=== PATIENT | female | born 1980 | race Caucasian/White ===

== ENCOUNTER → 2016-12-02 | Outpatient (CLI) | payer OTHER | LOC: FIMAGING 11:20 | PROVIDERS: ATTEND Obstetrics & Gynecology Maternal & Fetal Medicine | DX: Z34.81 Encounter for supervision of other normal pregnancy, first trimester (principal); Z3A.01 Less than 8 weeks gestation of pregnancy; Z87.59 Personal history of other complications of pregnancy, childbirth and the puerperium ==

== ENCOUNTER → 2017-01-06 | Outpatient (CLI) | payer OTHER | LOC: FIMAGING 09:24 | PROVIDERS: ATTEND Obstetrics & Gynecology | DX: Z34.91 Encounter for supervision of normal pregnancy, unspecified, first trimester (principal); Z3A.11 11 weeks gestation of pregnancy; Z87.51 Personal history of pre-term labor; Z98.891 History of uterine scar from previous surgery ==

== ENCOUNTER → 2017-02-03 | Outpatient (CLI) | payer OTHER | LOC: FIMAGING 08:45 | PROVIDERS: ATTEND Obstetrics & Gynecology | DX: O09.292 Supervision of pregnancy with other poor reproductive or obstetric history, second trimester (principal); O44.02 Complete placenta previa NOS or without hemorrhage, second trimester; Z3A.15 15 weeks gestation of pregnancy ==

== ENCOUNTER → 2017-02-17 | Outpatient (CLI) | payer OTHER | LOC: FIMAGING 08:27 | PROVIDERS: ATTEND Obstetrics & Gynecology | DX: O44.02 Complete placenta previa NOS or without hemorrhage, second trimester (principal); Z3A.17 17 weeks gestation of pregnancy ==

== ENCOUNTER → 2017-02-27 | Outpatient (CLI) | payer OTHER | LOC: FIMAGING 08:14 | PROVIDERS: ATTEND Obstetrics & Gynecology | DX: O09.292 Supervision of pregnancy with other poor reproductive or obstetric history, second trimester (principal); Z3A.19 19 weeks gestation of pregnancy ==

== ENCOUNTER → 2017-03-11 | Outpatient (CLI) | payer OTHER | LOC: FIMAGING 08:47 | PROVIDERS: ATTEND Obstetrics & Gynecology | DX: O09.292 Supervision of pregnancy with other poor reproductive or obstetric history, second trimester (principal); O44.42 Low lying placenta NOS or without hemorrhage, second trimester; O34.219 Maternal care for unspecified type scar from previous cesarean delivery; Z87.59 Personal history of other complications of pregnancy, childbirth and the puerperium; Z3A.21 21 weeks gestation of pregnancy ==

== ENCOUNTER → 2017-03-24 | Outpatient (CLI) | payer OTHER | LOC: FIMAGING 13:41 | PROVIDERS: ATTEND Obstetrics & Gynecology | DX: O09.292 Supervision of pregnancy with other poor reproductive or obstetric history, second trimester (principal); O44.02 Complete placenta previa NOS or without hemorrhage, second trimester; Z3A.22 22 weeks gestation of pregnancy ==

== ENCOUNTER → 2017-04-22 | Outpatient (CLI) | payer OTHER | LOC: FIMAGING 14:25 | PROVIDERS: ATTEND Obstetrics & Gynecology | DX: O34.219 Maternal care for unspecified type scar from previous cesarean delivery (principal); Z3A.28 28 weeks gestation of pregnancy; Z87.59 Personal history of other complications of pregnancy, childbirth and the puerperium ==

== ENCOUNTER → 2017-05-20 | Outpatient (CLI) | payer OTHER | LOC: FIMAGING 14:01 | PROVIDERS: ATTEND Obstetrics & Gynecology | DX: O09.293 Supervision of pregnancy with other poor reproductive or obstetric history, third trimester (principal); O34.212 Maternal care for vertical scar from previous cesarean delivery; Z3A.31 31 weeks gestation of pregnancy ==

== ENCOUNTER → 2017-06-16 | Outpatient (CLI) | payer OTHER | LOC: FIMAGING 13:29 | PROVIDERS: ATTEND Obstetrics & Gynecology | DX: O09.293 Supervision of pregnancy with other poor reproductive or obstetric history, third trimester (principal); R09.81 Nasal congestion; Z3A.34 34 weeks gestation of pregnancy ==

== ENCOUNTER 2017-07-07 05:30 | Inpatient (IN) | payer OTHER ==
--- NOTE | 2017-07-01 18:41 | GHP ---
[f rep st] PREOP HISTORY AND PHYSICAL DATE OF ADMISSION: 07/07/2017 DATE OF PLANNED PROCEDURE: 07/07/2017. PLANNED PROCEDURE: Repeat low-transverse section. INDICATIONS: The patient is a 36-year-old, 2, para 0-1-0-0, who will be 38+ weeks gestation. The patient's estimated due date is 07/22/2017 based on a last menstrual period of 10/15/2016, cons istent with a first trimester ultrasound at 9 weeks 2 days. The patient initially initiated care in the first trimester at [facility]. The patient has a history of a previous classi avn section at 25 weeks gestation that was complicated by a chronic abruption. Sh e had a classical section and baby, unfortunately, 1 day . The patient has b een treated with Anastasiia 17OHP injections throughout the because of her history of d elivery. She has had a close surveillance with this , which has overall been unremarkable w ith the exception of understandable anxiety due to her previous poor obstetric outcome. MEDICAL HISTORY: Significant for cervical dysplasia. MEDICATIONS: vitamins, folic acid, DHEA, iron. SURGICAL HISTORY: Classical section, hysteroscopy with morcellation of polyp. ALLERGIES: No known drug allergies. SOCIAL HISTORY: The patient is . 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 She lives with her . She d enies tobacco, alcohol, or drug use. FAMILY MEDICAL HISTORY: Noncontributory. HIP HOP ARTIST HISTORY: Menarche age 15. Periods were 24-28 days, lasting 4-5 days. She is a 2, pa ra 0-1-0-0. In 06/2015, she had a classical section of a 25-week gestation female for chron ic abruption and labor, but the baby at 1-day-old. Current , she has been on 1 7OHP injections for history of delivery, and has had close surveillance and growth ultrasound s. Baby has been growing well. This baby is a boy. The patient does have a history of cervical dys plasia, for which she had a LEEP in 2004. Repeat Paps have been negative. 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 She denies any history of any other sexually transmitted diseases. REVIEW OF SYSTEMS: A 10-point review of systems is negative. She has got positive movement. No loss of fluid. No vaginal bleeding. She denies any headache, changes in vision, nausea, vomiting , fevers, or chills. PHYSICAL EXAMINATION: VITAL SIGNS: Stable. GENERAL APPEARANCE: Alert and oriented x3. PSYCH: Ap propriate affect. MUSCULOSKELETAL: Grossly intact. NEURO: Grossly intact. NECK: Mobile and supp le. HEART: Regularly regular. LUNGS: Clear to auscultation bilaterally. ABDOMEN: Gravid, nondis tended, nontender. EXTREMITIES: No calf tenderness or edema. PELVIC: Deferred. LABORATORY DATA: LABS: Blood type A positive. Antibody screen negative. Rubella immune. GBS negative. HBsAg negative. HIV negative. Her 50 g glucose is 78. Her Verifi screen was negati ve. Her alpha fetoprotein screen is negative. ASSESSMENT AND PLAN: A 36-year-old, 2, para 0-1-0-0, who will be 38+ weeks gestation, who pl ans to have a repeat low transverse section. She is not a candidate for a vaginal aft er section. The patient has been properly consented. /[id number]/MODL
--- NOTE | 2017-07-01 18:41 | GHP ---
[f rep st] PREOP HISTORY AND PHYSICAL DATE OF ADMISSION: 07/07/2017 DATE OF PLANNED PROCEDURE: 07/07/2017. PLANNED PROCEDURE: Repeat low-transverse section. INDICATIONS: The patient is a 36-year-old, 2, para 0-1-0-0, who will be 38+ weeks gestation. The patient's estimated due date is 07/22/2017 based on a last menstrual period of 10/15/2016, cons istent with a first trimester ultrasound at 9 weeks 2 days. The patient initially initiated care in the first trimester at [facility]. The patient has a history of a previous classi van section at 25 weeks gestation that was complicated by a chronic abruption. Sh e had a classical section and baby, unfortunately, 1 day . The patient has b een treated with Anastasiia 17OHP injections throughout the because of her history of d elivery. She has had a close surveillance with this , which has overall been unremarkable w ith the exception of understandable anxiety due to her previous poor obstetric outcome. MEDICAL HISTORY: Significant for cervical dysplasia. MEDICATIONS: vitamins, folic acid, DHEA, iron. SURGICAL HISTORY: Classical section, hysteroscopy with morcellation of polyp. ALLERGIES: No known drug allergies. SOCIAL HISTORY: The patient is . 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 She lives with her . She d enies tobacco, alcohol, or drug use. FAMILY MEDICAL HISTORY: Noncontributory. AMMUNITION SPECIALIST HISTORY: Menarche age 15. Periods were 24-28 days, lasting 4-5 days. She is a 2, pa ra 0-1-0-0. In 06/2015, she had a classical section of a 25-week gestation female for chron ic abruption and labor, but the baby at 1-day-old. Current , she has been on 1 7OHP injections for history of delivery, and has had close surveillance and growth ultrasound s. Baby has been growing well. This baby is a boy. The patient does have a history of cervical dys plasia, for which she had a LEEP in 2004. Repeat Paps have been negative. 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 She denies any history of any other sexually transmitted diseases. REVIEW OF SYSTEMS: A 10-point review of systems is negative. She has got positive movement. No loss of fluid. No vaginal bleeding. She denies any headache, changes in vision, nausea, vomiting , fevers, or chills. PHYSICAL EXAMINATION: VITAL SIGNS: Stable. GENERAL APPEARANCE: Alert and oriented x3. PSYCH: Ap propriate affect. MUSCULOSKELETAL: Grossly intact. NEURO: Grossly intact. NECK: Mobile and supp le. HEART: Regularly regular. LUNGS: Clear to auscultation bilaterally. ABDOMEN: Gravid, nondis tended, nontender. EXTREMITIES: No calf tenderness or edema. PELVIC: Deferred. LABORATORY DATA: LABS: Blood type A positive. Antibody screen negative. Rubella immune. GBS negative. HBsAg negative. HIV negative. Her 50 g glucose is 78. Her Verifi screen was negati ve. Her alpha fetoprotein screen is negative. ASSESSMENT AND PLAN: A 36-year-old, 2, para 0-1-0-0, who will be 38+ weeks gestation, who pl ans to have a repeat low transverse section. She is not a candidate for a vaginal aft er section. The patient has been properly consented. /[id number]/MODL
[2017-07-07] MEDS ORDERED: LR 500 ML IV ONE (06:23)
[2017-07-07] MEDS ORDERED: CITRIC ACID/SODIUM CITRATE 30 ML UDCUP PO ONE (06:23)
[2017-07-07] MEDS ORDERED: ceFAZolin 2 GM/DEXTROSE 100 ML IV ONE (06:24)
[2017-07-07] MEDS ORDERED: LR 1,000 ML IV SCH (06:30)
[2017-07-07 07:45] LABS: PLATELET COUNT 208 10^3/uL (150-400)
--- NOTE | 2017-07-07 07:52 | PREANESOB ---
Obstetric Pre-Anesthesia Info - General Info Proposed Procedure: Repeat C Section.. : 2 Para: 1 PAUL: 07/22/17 Gestational Age: 37 week(s) and 6 day(s) - Info Status: Full Term Monitors: External FHR Baseline (bpm): 140 FHR Pattern: Reassuring - Labor Status Section History: Repeat Labor Epidural: No Anesthesia ROS: Prior C Section with regional anesthesia. Prior LEEP and polypectomy. Allergies/Adverse Reactions: Allergy/AdvReac Type Severity Reaction Status Date / Time No Known Allergies Allergy Verified 02/02/14 08:04 Home Medications: Medication Instructions Recorded NK [No Known Home Meds] 02/02/14 Visit Medications: Generic Name Dose Route Start Last Admin Trade Name Freq PRN Reason Stop Dose Admin Lactated Ringer's 1,000 mls @ 125 mls/hr 07/07/17 06:30 Lr IV 01/03/18 06:29 CONT LENI Discontinued Medications Generic Name Dose Route Start Last Admin Trade Name Freq PRN Reason Stop Dose Admin Citric Acid/Sodium Citrate 30 ml 07/07/17 06:23 Bicitra PO 07/07/17 06:24 ONCALL ONE Lactated Ringer's 500 mls @ 0 mls/hr 07/07/17 06:23 Lr IV 07/07/17 06:24 ONCE ONE As Directed Cefazolin Sodium/Dextrose 100 mls @ 200 mls/hr 07/07/17 06:24 Ancef 2 Gm (Premix) IV 07/07/17 06:53 ONCALL ONE Protocol - Anesthesia History Response to Local Anesthetics: Normal Anesthesia & Operative History: No Prior Problems Family Anesthesia History: Negative - Social History Substance Use/Abuse: Denies - Vital Signs Blood Pressure: 119/66 Heart Rate: 76 Height/Weight (Nursing): Height 162.56 cm Weight 79.832 kg - Focused Exam Neck exam: FROM Mallampati Score: Class 1 Mouth exam: normal dental/mouth exam Pulmonary: no respiratory distress Cardiovascular: regular rate and rhythym - Plan Anesthetic Plan: SAB Consent Signed and on Chart: Yes Patient/Guardian Understands and Agrees to Plan: Yes
[2017-07-07] MEDS ORDERED: OXYTOCIN 10 UNIT/ML VIAL ONE (08:28)
[2017-07-07] MEDS ORDERED: LIDOCAINE 1% 300 MG/30 ML SDV ONE (08:28)
[2017-07-07] MEDS ORDERED: AMMONIA AROMATIC 1 EACH AMP IH ONE (08:28)
[2017-07-07] MEDS ORDERED: MISOPROSTOL 200 MCG TAB ONE (08:28)
[2017-07-07] MEDS ORDERED: morphINE PF 5 MG/10 ML INJ ONE (10:11)
[2017-07-07] MEDS ORDERED: fentaNYL 100 MCG/2 ML INJ ONE (10:11)
[2017-07-07] MEDS ORDERED: PROPOFOL 200 MG/20 ML VIAL ONE (10:36)
[2017-07-07] MEDS ORDERED: OXYTOCIN 100 UNITS/10 ML VIAL ONE (10:36)
[2017-07-07] MEDS ORDERED: ONDANSETRON 4 MG/2 ML VIAL ONE ×2 (10:37→11:16)
[2017-07-07] MEDS ORDERED: LIDOCAINE 2% 5 ML SDV ONE ×2 (10:38→11:16)
[2017-07-07] MEDS ORDERED: DEXAMETHASONE 4 MG/ML VIAL ONE ×2 (11:16)
[2017-07-07] MEDS ORDERED: LACTULOSE 20 GM/30 ML UDCUP PO PRN (11:55)
[2017-07-07] MEDS ORDERED: DOCUSATE SODIUM 100 MG CAP PO PRN (11:55)
[2017-07-07] MEDS ORDERED: POLYETHYLENE GLYCOL 3350 17 GM PKT PO PRN (11:55)
[2017-07-07] MEDS ORDERED: PROMETHAZINE HCL 25 MG/ML INJ IVP PRN (11:55)
[2017-07-07] MEDS ORDERED: SIMETHICONE 80 MG TAB CHEW PO PRN (11:55)
[2017-07-07] MEDS ORDERED: MAGNESIUM HYDROXIDE 30 ML UDCUP PO PRN (11:55)
[2017-07-07] MEDS ORDERED: BISACODYL 10 MG SUPP PR PRN (11:55)
[2017-07-07] MEDS ORDERED: ACETAMINOPHEN 325 MG TAB PO PRN (11:55)
--- NOTE | 2017-07-07 12:04 | OBDEL ---
Info Type: Repeat Presentation at Delivery: Vertex L&D Analgesia/Anesthesia Type: Spinal GBS+: No Intrapartum Medications: Discontinued Medications Generic Name Dose Route Start Last Admin Trade Name Frank PRN Reason Stop Dose Admin Citric Acid/Sodium Citrate 30 ml 07/07/17 06:23 07/07/17 07:24 Bicitra PO 07/07/17 06:24 30 ml ONCALL ONE Administration Cefazolin Sodium/Dextrose 100 mls @ 200 mls/hr 07/07/17 06:24 07/07/17 07:50 Ancef 2 Gm (Premix) IV 07/07/17 06:53 100 mls ONCALL ONE Administration Protocol - Care Provider Cloth Printing Inspector/RETAIL PRESENTATION SPECIALIST: Randa Collins Indications for Delivery: Prior Classical Incision Operative Report - Delivery Pre-op Diagnoses: IUP @ 37 6/7 weeks, hx classical c section, hx demise on day of life 1 Post-op Diagnoses: same as pre op History of Prior Section: Yes Number of Prior Sections: 1 Indications for Prior Section: Placental Abruption Indications for Current Section: Elective/Repeat Surgeon: Tana Gonzales Fnp: Sarah Donato Anesthesiologist: James Fairchild Complications: None Findings: omentum adherent to uterus and anterior abdominal wall EBL: [address] [place] Data Strong Delivery Date: 07/07/17 Delivery Time: 10:53 PAUL: 07/22/17 Gestational Age: 37 week(s) and 6 day(s) Sex of : Male Score (1 Min): 8 Score (5 Min): 9 ICD10 Worksheet Patient Problems: Problems Problem Status Onset delivery delivered Acute
--- NOTE | 2017-07-07 12:04 | OBDEL ---
Info Type: Repeat Presentation at Delivery: Vertex L&D Analgesia/Anesthesia Type: Spinal GBS+: No Intrapartum Medications: Discontinued Medications Generic Name Dose Route Start Last Admin Trade Name Frank PRN Reason Stop Dose Admin Citric Acid/Sodium Citrate 30 ml 07/07/17 06:23 07/07/17 07:24 Bicitra PO 07/07/17 06:24 30 ml ONCALL ONE Administration Cefazolin Sodium/Dextrose 100 mls @ 200 mls/hr 07/07/17 06:24 07/07/17 07:50 Ancef 2 Gm (Premix) IV 07/07/17 06:53 100 mls ONCALL ONE Administration Protocol - Care Provider Event Staff/GROUP HOME SUPERVISOR: Randa Collins Indications for Delivery: Prior Classical Incision Operative Report - Delivery Pre-op Diagnoses: IUP @ 37 6/7 weeks, hx classical c section, hx demise on day of life 1 Post-op Diagnoses: same as pre op History of Prior Section: Yes Number of Prior Sections: 1 Indications for Prior Section: Placental Abruption Indications for Current Section: Elective/Repeat Surgeon: Tana Gonzales Diabetes Specialist: Sarah Donato Anesthesiologist: James Fairchild Complications: None Findings: omentum adherent to uterus and anterior abdominal wall EBL: [address] [place] Data Strong Delivery Date: 07/07/17 Delivery Time: 10:53 PAUL: 07/22/17 Gestational Age: 37 week(s) and 6 day(s) Sex of : Male Score (1 Min): 8 Score (5 Min): 9 ICD10 Worksheet Patient Problems: Problems Problem Status Onset delivery delivered Acute
[2017-07-07] MEDS ORDERED: KETOROLAC 30 MG/1 ML SDV ONE (12:29)
[2017-07-07] MEDS: KETOROLAC 30 MG/1 ML SDV IVP SCH ×2 (12:31→18:03)
--- NOTE | 2017-07-07 13:09 | GOP ---
[f rep st] OPERATIVE REPORT DATE OF OPERATION: 07/07/2017 SURGEON: Tana Gonzales DO SUPERINTENDENT DISTRIBUTION: NERY Del Real ANESTHESIOLOGIST: James Fairchild MD PREOPERATIVE DIAGNOSIS: 1. Intrauterine at 37 and 6/7 weeks' gestation. 2. History of classical section. 3. History of demise at 1 day of life with G1, secondary to chronic abruption and prematuri ty. POSTOPERATIVE DIAGNOSIS: 1. Intrauterine at 37 and 6/7 weeks' gestation. 2. History of classical section. 3. History of demise at 1 day of life with G1, secondary to chronic abruption and prematuri ty. PROCEDURE PERFORMED: Repeat low transverse section. FINDINGS: 1. Viable 7 pound, 4 ounce male in the cephalic presentation, delivered at 10:53 a.m. Apgars were 8 and 9. 2. Intact placenta with 3-vessel cord. 3. Normal ovaries uterus and tubes. 4. Omentum adhered to anterior wall of the uterus and the peritoneum. SPECIMENS: Cord blood. INDICATIONS: Patient is a 36-year-old, 2, para 0, 1-0-0, who is 37 and 6/7 weeks' gestation. She has a history of a previous classical section for chronic abruption at 26 weeks' gesta tion. The baby only lived 1 day. She is not a candidate for vaginal after section. Patient has been closely monitored during this and received progesterone injections due to her history of delivery. The patient was consented for a repeat low transverse sect ion. Risks and benefits have been reviewed with the patient and the patient has been properly consen karen. DESCRIPTION OF PROCEDURE: Patient was taken to the operating room with intravenous fluids in place. She was then seated on the operating room table, where spinal anesthesia was obtained. She was then repositioned into the dorsal supine position with a leftward tilt. Venodynes were placed on her low er extremities. A Espitia catheter was placed. She was then prepped and draped in the normal sterile fashion. Anesthesia was assessed and found to be adequate. A Pfannenstiel skin incision was then ma de 2 fingerbreadths above the pubic symphysis. The incision was then carried through to the underlyi ng layer of fascia with the Bovie. The fascia was then nicked in the midline, and the fascial incisi on was extended laterally. The superior aspect of the fascial incision was then grasped with a Koche r, tented up, and the underlying rectus muscle dissected off bluntly with the Bovie. Attention was t hen turned to the inferior aspect of the fascial incision, which in a similar fashion was grasped wit h adán Eng, tented up, and the underlying rectus muscle dissected off bluntly with the Bovie. The re ctus muscle was then in the midline. The peritoneum was identified, tented up, and entered sharply with the Metzenbaum scissors. The incision was extended superiorly and inferiorly with exce llent visualization of the bladder. The omentum was noted to be adherent to the anterior abdominal w all and the peritoneum, it was carefully dissected off and was found to be hemostatic. The bladder b lade was then inserted. Vesicouterine peritoneum was identified, tented up, and entered sharply with the Metzenbaum scissors. The incision was extended laterally and the bladder flap was created digit ally. The bladder blade was then reinserted. The uterus was then incised in low transverse fashion with the scalpel. The uterine incision was extended laterally. The infant's head was then delivered through the incision. The remainder of the viable 8-[id number]-5-ounce was delivered without diff iculty. Delayed cord clamping x1 was done. The cord was clamped x2 and cut, and the then avalos ded off to awaiting nurse practitioner. Intact placenta with 3-vessel cord delivered without difficulty. The uterus was then exteriorized an d cleared of all clots and debris, and wrapped in a moist laparotomy sponge. The bladder blade was t hen reinserted. The hysterotomy was closed with 0 Vicryl in a running locked fashion. A 2nd 0 Vicry l stitch was used to imbricate the uterine incision, and 1 additional 0 Vicryl stitch was used to ach ieve hemostasis on the left lower portion of the incision. Ovaries, uterus, and tubes were unremarka ble. The uterus was then returned to the patient's abdomen. The gutters were cleared of all clots a nd debris. The hysterotomy remained hemostatic. Peritoneum was reapproximated with 3-0 Vicryl in a running fashion, rectus muscle was reapproximated with 2-0 Vicryl. The fascia was closed with 0 Vicr yl in a running fashion. The subcutaneous tissue was found to be hemostatic. Toñito's tissue was re approximated with 3-0 Vicryl in a running fashion. Subcuticular tissue was closed with 3-0 Vicryl in a running subcuticular fashion. Sponge, lap, and needle count correct x2. Patient was transferred to recovery room in stable condition. /[id number]/MODL
[2017-07-07] MEDS ORDERED: NALOXONE HCL 0.4 MG/ML INJ IVP PRN (13:20)
[2017-07-07] MEDS ORDERED: ONDANSETRON 4 MG/2 ML VIAL IVP PRN (13:20)
[2017-07-07] MEDS ORDERED: PHENYLEPHRINE HCL 100 MCG/ML SYR IVP PRN (13:20)
--- NOTE | 2017-07-07 13:20 | POSTANESTH ---
Post Anesthetic Evaluation Cardiovascular Status: Normal, Stable, Similar to Pre-Op Cond Respiratory Status: Normal, Stable, Similar to Pre-op Cond. Level of Consciousness/Mental Status: Can Participate in Eval, Alert and Oriented Pain Control: Adequate, Prn Tx Ordered Nausea/Vomiting Control: Adequate, Prn Tx Ordered Complications Possibly Related to Anesthesia: None Noted
[2017-07-07] MEDS: SENNOSIDES/DOCUSATE SODIUM TAB PO SCH (22:17)
[2017-07-08] MEDS: KETOROLAC 30 MG/1 ML SDV IVP SCH ×2 (00:44→05:51)
[2017-07-08] MEDS: SENNOSIDES/DOCUSATE SODIUM TAB PO SCH ×2 (08:54→20:55)
[2017-07-08] MEDS: HYDROCODONE/APAP 5/325 TAB PO PRN ×4 (08:54→20:54)
--- NOTE | 2017-07-08 10:37 | OBPP ---
Progress Note Assessment/Plan: Assessment: 36 yo pod# 1 s/p PLTCS hx classical c section anemia breast feeding Plan: iron routine post and post operative care 07/08/17 10:33 Subjective/ Course: 07/08/17 10:37 patient is doing well. pain is well controlled. coates catheter is out . able to walk in the room. not passing gas yet. denies headache and changes in vision. working on breast feeding. anxious about baby but doing well. normal lochia. Objective: 07/08/17 06:10 Patient ABO/Rh A POSITIVE 07/07/17 06:15 Temp Pulse Resp BP Pulse Ox 36.6 C 74 18 112/65 94 07/08/17 08:00 07/08/17 08:00 07/08/17 08:00 07/08/17 08:00 07/08/17 08:00 Uterine Position/Fundal Height: Umbilicus -2 Uterine Tone: Firm Physical Exam - Physical Exam Neck: non-tender, full range of motion Respiratory: chest non-tender, lungs clear, normal breath sounds Cardiac/Chest: normal peripheral pulses, regular rate, rhythm Abdomen: normal bowel sounds, non-tender Extremities: normal range of motion, non-tender, normal inspection, normal capillary refill Skin: normal color, warm/dry, other (incision clean dry and intact) Neuro/Psych: no motor/sensory deficits, alert, normal mood/affect, oriented x 3
[2017-07-08] MEDS ORDERED: IRON POLYSAC/IRON HEME 28 MG TAB PO SCH (10:45)
[2017-07-08] MEDS: IBUPROFEN 600 MG TAB PO PRN ×2 (12:15→18:08)
[2017-07-08] MEDS: IRON POLYSAC/IRON HEME 28 MG TAB PO SCH (21:20)
[2017-07-09] MEDS: IBUPROFEN 600 MG TAB PO PRN ×4 (00:08→20:28)
[2017-07-09] MEDS: HYDROCODONE/APAP 5/325 TAB PO PRN ×5 (00:08→20:29)
[2017-07-09] MEDS: IRON POLYSAC/IRON HEME 28 MG TAB PO SCH ×3 (09:48→20:30)
[2017-07-09] MEDS: SENNOSIDES/DOCUSATE SODIUM TAB PO SCH ×2 (09:48→20:50)
--- NOTE | 2017-07-09 10:25 | OBPP ---
Progress Note Assessment/Plan: Assessment: 36 yo pod# 2 s/p PLTCS hx classical c section anemia breast feeding Plan: iron routine post and post operative care 07/09/17 10:23 Subjective/ Course: 07/08/17 10:37 patient is doing well. pain is well controlled. coates catheter is out . able to walk in the room. not passing gas yet. denies headache and changes in vision. working on breast feeding. anxious about baby but doing well. normal lochia. 07/09/17 10:23 patient is doing well. pain is well controlled. passing gas. had a small bowel movement. breast feeding is going well. but has a small blister on one of her nipples. working with lacation. mood good. voiding without difficulty. denies headache and changes in vision. ambulating. Objective: 07/08/17 06:10 Patient ABO/Rh A POSITIVE 07/07/17 06:15 Temp Pulse Resp BP Pulse Ox 37.1 C 94 18 120/68 94 07/09/17 01:25 07/09/17 01:25 07/09/17 01:25 07/09/17 01:25 07/09/17 01:25 Uterine Position/Fundal Height: Umbilicus -2 Uterine Tone: Firm Physical Exam - Physical Exam Neck: non-tender, full range of motion, supple Respiratory: chest non-tender, lungs clear, normal breath sounds Cardiac/Chest: normal peripheral pulses, regular rate, rhythm Abdomen: normal bowel sounds, non-tender Extremities: normal range of motion, non-tender, normal inspection, normal capillary refill Skin: normal color, warm/dry Neuro/Psych: no motor/sensory deficits, alert, normal mood/affect, oriented x 3
[2017-07-10] MEDS: HYDROCODONE/APAP 5/325 TAB PO PRN ×2 (00:53→05:13)
[2017-07-10] MEDS: IBUPROFEN 600 MG TAB PO PRN ×2 (02:31→09:25)
[2017-07-10 05:11] VITALS: RESP 16
[2017-07-10 08:49] VITALS: BP 101/61; PULSE 65; TEMP 99.1; O2SAT 95
[2017-07-10] MEDS: SENNOSIDES/DOCUSATE SODIUM TAB PO SCH (09:24)
[2017-07-10] MEDS: IRON POLYSAC/IRON HEME 28 MG TAB PO SCH (10:44)
--- NOTE | 2017-07-10 11:13 | OBGCSDC ---
General Delivery Information - General Info : 2 Para: 2 Abortions: 0 Type: Repeat L&D Analgesia/Anesthesia Type: Spinal Admission Date: 07/07/17 Labs: Patient ABO/Rh A POSITIVE 07/07/17 06:15 Hct 30.6 % (38.0-47.0) L 07/08/17 06:10 - Hospital Course : 07/08/17 10:37 patient is doing well. pain is well controlled. coates catheter is out . able to walk in the room. not passing gas yet. denies headache and changes in vision. working on breast feeding. anxious about baby but doing well. normal lochia. 07/09/17 10:23 patient is doing well. pain is well controlled. passing gas. had a small bowel movement. breast feeding is going well. but has a small blister on one of her nipples. working with lacation. mood good. voiding without difficulty. denies headache and changes in vision. ambulating. 07/10/17 11:10 Discharge Summary S) pt doing well, she reports min pain- relieved with ibuprofen and norco. She is voiding without difficulty and has had BM. She is . Denies any depression. She denies any CP/SOB/headaches. She is ambulating without difficulty. O) Exam: VSS constitutional: WN,WF, A&Ox3 HEENT: atraumatic, normocephalic, supple neck Heart: RRR, no murmur Chest: CTA-B Abdomen: Soft, nontender Incision: C/D/I, no erythema Uterus: firm @U-1 lochia: min rubra, no clots Extremities: trace edema, negative van's sign neuro: grossly normal A) [id number] s/p repeat c/s POD#3 anemia P) d/c home today routine post op care cont /use of APNO danger S&S discussed RTO in 1-2 weeks for post op visit - Delivery Providers Surgeon: Tana Gonzales Social Research Assistant: Sarah Dontao Anesthesiologist: James Fairchild - Delivery Number of Prior Sections: 1 Indications for Current Section: Elective/Repeat Intra-op Complications: None EBL: 700 Data Strong Delivery Date: 07/07/17 Delivery Time: 10:53 PAUL: 07/22/17 Gestational Age: 38 week(s) and 2 day(s) Sex of : Male Weight (gm): 3284 g Score (1 Min): 8 Score (5 Min): 9 Discharge Information - Discharge Information Condition: Good Instruction/Follow Up: Two Weeks, Four Weeks, Six Weeks
== END 2017-07-10 18:30 | disposition home or self-care (01) | DRG 766 ==
LOC: FLD 05:30 → FOB 14:05
PROVIDERS: ADMIT Obstetrics & Gynecology Gynecology; ATTEND Obstetrics & Gynecology
PROC: 10D00Z1 Extraction of Products of Conception, Low, Open Approach (ICD-10-PCS; principal; 2017-07-07)
DX: O34.211 Maternal care for low transverse scar from previous cesarean delivery (principal); O90.81 Anemia of the puerperium; Z3A.38 38 weeks gestation of pregnancy; Z37.0 Single live birth
CPT/HCPCS: J0690; J1100; J1885; J2274; J2405; J2550; J2590; J2704; J3010

== ENCOUNTER → 2018-07-16 | Outpatient (CLI) | payer OTHER | LOC: FIMAGING 09:11 | PROVIDERS: ATTEND Obstetrics & Gynecology | DX: O09.521 Supervision of elderly multigravida, first trimester (principal); Z3A.12 12 weeks gestation of pregnancy ==

== ENCOUNTER → 2018-08-13 | Outpatient (CLI) | payer OTHER | LOC: FIMAGING 13:56 | PROVIDERS: ATTEND Obstetrics & Gynecology | DX: O09.212 Supervision of pregnancy with history of pre-term labor, second trimester (principal); Z3A.25 25 weeks gestation of pregnancy ==

== ENCOUNTER → 2018-08-27 | Outpatient (CLI) | payer OTHER | LOC: FIMAGING 07:19 | PROVIDERS: ATTEND Obstetrics & Gynecology | DX: O44.42 Low lying placenta NOS or without hemorrhage, second trimester (principal); Z3A.18 18 weeks gestation of pregnancy ==

== ENCOUNTER → 2018-09-08 | Outpatient (CLI) | payer OTHER | LOC: FIMAGING 07:58 | PROVIDERS: ATTEND Obstetrics & Gynecology | DX: O09.522 Supervision of elderly multigravida, second trimester (principal); O09.292 Supervision of pregnancy with other poor reproductive or obstetric history, second trimester; Z3A.19 19 weeks gestation of pregnancy ==

== ENCOUNTER → 2018-09-22 | Outpatient (CLI) | payer OTHER | LOC: FIMAGING 08:36 | PROVIDERS: ATTEND Obstetrics & Gynecology | DX: O09.522 Supervision of elderly multigravida, second trimester (principal); O09.292 Supervision of pregnancy with other poor reproductive or obstetric history, second trimester; Z3A.21 21 weeks gestation of pregnancy ==

== ENCOUNTER → 2018-10-05 | Outpatient (CLI) | payer OTHER | LOC: FIMAGING 08:43 | PROVIDERS: ATTEND Obstetrics & Gynecology | DX: O09.522 Supervision of elderly multigravida, second trimester (principal); Z3A.23 23 weeks gestation of pregnancy ==

== ENCOUNTER → 2018-12-07 | Outpatient (CLI) | payer OTHER | LOC: FIMAGING 08:45 | PROVIDERS: ATTEND Obstetrics & Gynecology | DX: Z34.83 Encounter for supervision of other normal pregnancy, third trimester (principal); Z3A.32 32 weeks gestation of pregnancy ==

== ENCOUNTER 2019-01-11 05:12 | Inpatient (IN) | payer OTHER ==
--- NOTE | 2018-12-28 12:45 | GHP ---
[f rep st] PREOP HISTORY AND PHYSICAL DATE OF PLANNED PROCEDURE: 01/11/2019 PLANNED PROCEDURE: Repeat low transverse section. The patient is a 38-year-old 3, Para 1-1-0-1 who will be 38+ weeks gestation. The patient has an estimated date of confinement of , dated by last menstrual period of 04/22/2018, consistent with a 6-week ultrasound. The patient's 1st : The patient initiated care in the 1st trimester with [facility]. Patient has a history of a 25-week classical for chronic abruption and preter m labor. Unfortunately that baby on day of life 1. She had an uncomplicated 2nd pregnan cy and a repeat section at 38+ weeks gestation. She was on McKena injections during that pr egnancy. This has been uncomplicated. She has had serial ultrasounds with [facility] and has been on McKena injections and is scheduled for a repeat section at 38+ week s. MEDICAL HISTORY: Remarkable for history of cervical dysplasia. MEDICATIONS: vitamins and iron. SURGICAL HISTORY: LEEP excision in 2004, classical section in 2014, Repeat section at 2016. Hysteroscopy with morcellation of a polyp. She had wisdom teeth extraction. ALLERGIES: No known drug allergies. SOCIAL HISTORY: Patient is . 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 She lives with her and their s on. She denies tobacco, alcohol, or drug use. FAMILY MEDICAL HISTORY: Noncontributory. TAPPER BIT: History menarche age 15. Periods every 28 days lasting 5 days. She is a 3, para 1- 1-0-1. In 06/2015, she had a classical at 25 weeks gestation and delivered a female infant at [place] after P-PROM and chronic abruption. The baby at day 1 day of life. In 07/2017 s he had a repeat low transverse section at 38 and 2/7 weeks gestation of a 7 pounds 4 ounce m french infant. and delivery were uncomplicated. Current has been uncomplicated. S he has been on McKena injections for history of delivery. The patient does have a history of cervical dysplasia. She had a LEEP in 2004. Repeat Pap smears have been negative thus far. She de nies any history of any other sexually transmitted diseases. REVIEW OF SYSTEMS: 10-point review of systems is negative. Positive movement. No loss of flu id. No vaginal bleeding. She denies any headache or changes in vision. PHYSICAL EXAMINATION: VITAL SIGNS: The patient's vital signs are stable. GENERAL APPEARANCE: Aler t and oriented x3. PSYCH: Appropriate affect. MUSCULOSKELETAL: Grossly intact. NEURO: Grossly intact. HEART: Regu lar. LUNGS: Clear to auscultation bilaterally. ABDOMEN: Gravid, nondistended, nontender. EXTREMI TIES: Reveal no calf tenderness or edema. Cervical exam is declined. Infant has been in the vertex presentation. LABS: Blood type A positive. Antibody screen negative. Rubella immune. GBS is negative. HBsAg negative. HIV negative. Her 50-g glucose was 106. ASSESSMENT AND PLAN: A 38-year-old, 3, para 1-1-0-1, who will be 38+ weeks gestation, who pr esents for repeat section for history of classical section and subsequent low trans verse section. She declines a tubal ligation at this time. Risks and benefits have been ex tensively reviewed with the patient. The patient has been properly consented. /[id number]/MODL
[2019-01-11] MEDS ORDERED: ceFAZolin 2 GM/DEXTROSE 100 ML IV ONE (05:44)
[2019-01-11] MEDS ORDERED: LR 1,000 ML IV SCH (05:44)
[2019-01-11] MEDS ORDERED: CITRIC ACID/SODIUM CITRATE 30 ML UDCUP PO ONE (05:44)
[2019-01-11] MEDS ORDERED: LR 500 ML IV ONE (05:44)
[2019-01-11 06:19] LABS: PLATELET COUNT 196 10^3/uL (150-400)
[2019-01-11] MEDS ORDERED: MISOPROSTOL 200 MCG TAB ONE (06:31)
[2019-01-11] MEDS ORDERED: OXYTOCIN 10 UNIT/ML VIAL ONE (06:31)
[2019-01-11] MEDS ORDERED: TERBUTALINE SULFATE 1 MG/ML VIAL ONE (06:31)
[2019-01-11] MEDS ORDERED: AMMONIA AROMATIC 1 EACH AMP IH ONE (06:31)
--- NOTE | 2019-01-11 07:19 | PREANESOB ---
Obstetric Pre-Anesthesia Info - General Info Proposed Procedure: repeat c/s : 3 Para: 2 PAUL: 01/27/19 Gestational Age: 37 week(s) and 5 day(s) - Info Status: Full Term - Labor Status Section History: Repeat Indications for Current Section: Elective/Repeat Labor Epidural: No Anesthesia ROS: GERD with Allergies/Adverse Reactions: Allergy/AdvReac Type Severity Reaction Status Date / Time No Known Allergies Allergy Verified 02/02/14 08:04 Home Medications: Medication Instructions Recorded Ascorbic Acid [Vitamin C] 01/11/19 01/11/19 Zantac 175 mg 01/11/19 Visit Medications: Generic Name Dose Route Start Last Admin Trade Name Freq PRN Reason Stop Dose Admin Lactated Ringer's 1,000 mls @ 125 mls/hr 01/11/19 05:44 Lr IV 01/12/19 05:43 CONT LENI Discontinued Medications Generic Name Dose Route Start Last Admin Trade Name Freq PRN Reason Stop Dose Admin Ammonia (Aromatic Spirit) Confirm 01/11/19 06:31 Ammonia Aromatic Administered 01/11/19 06:32 Dose 1 each IH .STK-MED ONE Citric Acid/Sodium Citrate 30 ml 01/11/19 05:44 01/11/19 07:16 Bicitra PO 01/11/19 05:45 30 ml ONCALL ONE Administration Cefazolin Sodium/Dextrose 100 mls @ 200 mls/hr 01/11/19 05:44 01/11/19 07:16 Ancef IV 01/11/19 06:13 100 mls ONCALL ONE Administration Protocol Lactated Ringer's 500 mls @ 0 mls/hr 01/11/19 05:44 01/11/19 06:38 Lr IV 01/11/19 05:45 500 mls ONCE ONE Administration As Directed Misoprostol Confirm 01/11/19 06:31 Cytotec Administered 01/11/19 06:32 Dose 1,000 mcg .ROUTE .STK-MED ONE Oxytocin Confirm 01/11/19 06:31 Pitocin Administered 01/11/19 06:32 Dose 40 unit .ROUTE .STK-MED ONE Terbutaline Sulfate Confirm 01/11/19 06:31 Brethine Administered 01/11/19 06:32 Dose 1 mg .ROUTE .STK-MED ONE - Anesthesia History Response to Local Anesthetics: Normal Anesthesia & Operative History: No Prior Problems - Social History Substance Use/Abuse: Denies - Vital Signs Latest Vital Signs (Nursing): Temp Pulse Resp BP Pulse Ox 36.6 C 76 18 124/69 H 95 01/11/19 06:19 01/11/19 06:19 01/11/19 06:19 01/11/19 06:19 01/11/19 06:19 Height/Weight (Nursing): Height 162.56 cm Weight 74.843 kg - Focused Exam Neck exam: FROM Mallampati Score: Class 1 Mouth exam: normal dental/mouth exam Pulmonary: no respiratory distress Cardiovascular: regular rate and rhythym Labs: 01/11/19 04:50 Patient ABO/Rh A POSITIVE 01/11/19 04:50 - Plan Anesthetic Plan: SAB spinal morphine for post op pain Consent Signed and on Chart: Yes Patient/Guardian Understands and Agrees to Plan: Yes
[2019-01-11] MEDS ORDERED: morphINE PF 5 MG/10 ML INJ ONE (07:26)
[2019-01-11] MEDS ORDERED: BUPIVACAINE/DEXTROSE 7.5MG/ML 2 ML SPINAL AMP SP ONE (07:27)
[2019-01-11] MEDS ORDERED: ONDANSETRON 4 MG/2 ML VIAL ONE (07:32)
[2019-01-11] MEDS ORDERED: DEXAMETHASONE 4 MG/ML VIAL ONE (07:32)
[2019-01-11] MEDS ORDERED: OXYTOCIN 100 UNITS/10 ML VIAL ONE (07:37)
[2019-01-11] MEDS ORDERED: NALOXONE HCL 0.4 MG/ML INJ IVP PRN (08:09)
[2019-01-11] MEDS ORDERED: MEPERIDINE 25 MG/0.5 ML AMP IVP PRN (08:09)
[2019-01-11] MEDS ORDERED: ONDANSETRON 4 MG/2 ML VIAL IVP PRN ×2 (08:09→16:28)
[2019-01-11] MEDS ORDERED: HYDROmorphONE/DILAUDID 1 MG/ML INJ IVP PRN (08:09)
[2019-01-11] MEDS ORDERED: fentaNYL 100 MCG/2 ML INJ IVP PRN (08:09)
[2019-01-11] MEDS ORDERED: PHENYLEPHRINE HCL 100 MCG/ML SYR IVP PRN (08:09)
[2019-01-11] MEDS ORDERED: ePHEDrine SULFATE 25 MG/5 ML SYR ONE (08:41)
[2019-01-11] MEDS ORDERED: MAGNESIUM HYDROXIDE 30 ML UDCUP PO PRN (09:29)
[2019-01-11] MEDS ORDERED: POLYETHYLENE GLYCOL 3350 17 GM PKT PO PRN (09:29)
[2019-01-11] MEDS ORDERED: PROMETHAZINE HCL 25 MG/ML INJ IVP PRN (09:29)
[2019-01-11] MEDS ORDERED: LACTULOSE 20 GM/30 ML UDCUP PO PRN (09:29)
[2019-01-11] MEDS ORDERED: SIMETHICONE 80 MG TAB CHEW PO PRN (09:29)
[2019-01-11] MEDS ORDERED: BISACODYL 10 MG SUPP PR PRN (09:29)
[2019-01-11] MEDS ORDERED: KETOROLAC 30 MG/1 ML SDV IVP SCH (09:30)
[2019-01-11] MEDS ORDERED: ACETAMINOPHEN 325 MG TAB ONE (09:48)
[2019-01-11] MEDS ORDERED: KETOROLAC 30 MG/1 ML SDV ONE (09:48)
[2019-01-11] MEDS ORDERED: ACETAMINOPHEN 325 MG TAB PO SCH (12:30)
--- NOTE | 2019-01-11 13:37 | OBDEL ---
Info Type: Repeat Presentation at Delivery: Vertex L&D Analgesia/Anesthesia Type: IV Narcotics, Spinal GBS+: No Intrapartum Medications: Discontinued Medications Generic Name Dose Route Start Last Admin Trade Name Frank PRN Reason Stop Dose Admin Acetaminophen 650 mg 01/11/19 12:30 01/11/19 09:49 Tylenol PO 07/10/19 12:29 650 mg Q6H LENI Administration Citric Acid/Sodium Citrate 30 ml 01/11/19 05:44 01/11/19 07:16 Bicitra PO 01/11/19 05:45 30 ml ONCALL ONE Administration Cefazolin Sodium/Dextrose 100 mls @ 200 mls/hr 01/11/19 05:44 01/11/19 07:16 Ancef IV 01/11/19 06:13 100 mls ONCALL ONE Administration Protocol Lactated Ringer's 500 mls @ 0 mls/hr 01/11/19 05:44 01/11/19 06:38 Lr IV 01/11/19 05:45 500 mls ONCE ONE Administration As Directed Ketorolac Tromethamine 30 mg 01/11/19 09:30 01/11/19 09:50 Toradol IVP 01/12/19 03:31 30 mg Q6H LENI Administration Indications for Delivery: Elective Vaginal Delivery - Labor and Delivery Placenta Delivery Date: 01/11/19 Placenta Delivery Time: 08:20 Operative Report - Delivery Pre-op Diagnoses: IUP 37 5/7 weeks, hx classical section, hx low transverse c section Post-op Diagnoses: same as preop History of Prior Section: Yes Number of Prior Sections: 2 Indications for Prior Section: Elective/Repeat, Placental Abruption Indications for Current Section: Elective/Repeat Procedure: Scheduled, Low Transverse Surgeon: Tana Gonzales Assessor: Imani Alexander Anesthesiologist: Chidi Garcia Complications: None EBL: 700 Data PAUL: 01/27/19 Gestational Age: 37 week(s) and 5 day(s) Strong Delivery Date: 01/11/19 Delivery Time: 08:18 Sex of : Male Weight (gm): 3295 g Score (1 Min): 8 Score (5 Min): 9 ICD10 Worksheet Patient Problems: Problems Problem Status Onset delivery delivered Acute
[2019-01-11] MEDS: ACETAMINOPHEN 325 MG TAB PO SCH (17:36)
--- NOTE | 2019-01-11 17:52 | OBPP ---
Progress Note Assessment/Plan: Assessment: pod# 0 s/p RLTCS for hx classical c section breast feeding low urine output - fluid bolus and hold toradol until diuresing. BMP now and in am normal lochia RH+ / RI nausea improved with zofran but will add phenergan Plan: 01/11/19 17:48 Subjective/ Course: 01/11/19 17:50 patient is dong well overall. surgery much rougher than the last one. pain is well controlled. decreased urine output since surgery <30 ml/hour. urine clear but very concentrated. fluid bolus given. will hold toradol until better urine output. will check creatineine now and in am. zofran helped nausea but still having some. will give phenergan in 1 L lr and run in 125/ hour. will slowly advance diet. stood at bedside. working on breast feeding. discussed plan with patient. Objective: 01/11/19 04:50 Patient ABO/Rh A POSITIVE 01/11/19 04:50 Temp Pulse Resp BP Pulse Ox 36.1 C 89 16 111/67 98 01/11/19 14:45 01/11/19 14:45 01/11/19 16:45 01/11/19 14:45 01/11/19 16:45 Physical Exam - Physical Exam Respiratory: chest non-tender, lungs clear, normal breath sounds Cardiac/Chest: normal peripheral pulses, regular rate, rhythm Abdomen: normal bowel sounds, other (appropriately tender) Extremities: normal range of motion, non-tender, normal inspection, normal capillary refill Skin: normal color, warm/dry Neuro/Psych: no motor/sensory deficits, alert, normal mood/affect, oriented x 3
[2019-01-11] MEDS: KETOROLAC 30 MG/1 ML SDV IVP SCH ×2 (18:27→20:48)
[2019-01-11] MEDS ORDERED: FUROSEMIDE 20 MG/2 ML VIAL IVP ONE (19:31)
[2019-01-11] MEDS: SENNOSIDES/DOCUSATE SODIUM TAB PO SCH (20:49)
[2019-01-12] MEDS: KETOROLAC 30 MG/1 ML SDV IVP SCH (03:37)
[2019-01-12] MEDS: ACETAMINOPHEN 325 MG TAB PO SCH ×5 (03:37→21:53)
--- NOTE | 2019-01-12 04:53 | GOP ---
[f rep st] OPERATIVE REPORT DATE OF OPERATION: 01/11/2019 SURGEON: Tana Gonzales DO FARM SPECIALIST: . ANESTHESIA: Spinal with Duramorph. ANESTHESIOLOGIST: Chidi Garcia MD. PREOPERATIVE DIAGNOSIS: 1. Intrauterine at 37-5/7 weeks gestation. 2. History of classical section and subsequent low-transverse section. 3. Recommended delivery between 37 and 38 weeks per [facility]. POSTOPERATIVE DIAGNOSIS: 1. Intrauterine at 37-5/7 weeks gestation. 2. History of classical section and subsequent low-transverse section. 3. Recommended delivery between 37 and 38 weeks per M. 4. Adhesions. PROCEDURE PERFORMED: Repeat low-transverse section with lysis of adhesions. FINDINGS: 1. Viable 7 pound 4 ounce male infant in the cephalic presentation delivered at 8:18 a.m. Apgars we re 8 and 9. 2. Intact placenta with 3-vessel cord. 3. Normal ovaries, uterus and tubes. Omentum was adherent to lower peritoneum which was resected. SPECIMENS: Cord blood. ESTIMATED BLOOD LOSS: 700 cc. INDICATIONS: The patient is a 38-year-old 3, para 2-1-0-2 who is 37-5/7 weeks gestation with a history of a classical section at 25 weeks for abruption and the baby subsequently p ostoperative day #1. She had a subsequent low-transverse section 18 months ago of a term in [facility]. The patient received [place] during the second and third pregnancies. has been uncom plicated. She presents today for a scheduled repeat low-transverse section. She declines t ubal ligation. Risks and benefits have been reviewed with the patient and the patient has been prope rly consented. DESCRIPTION OF PROCEDURE: The patient was taken to the operating room with intravenous fluids in jasvir ce. She was then seated on the operating room table where spinal anesthesia was obtained. She was g iven 2 g of Ancef intravenously. She was then repositioned on the operating room table in the dorsal supine position with a leftward tilt. A Espitia catheter was then placed. Venodynes were placed on h er lower extremities and she was prepped and draped in the normal sterile fashion. Anesthesia was as sessed and found to be adequate. A Pfannenstiel skin incision was then made 2 fingerbreadths above t he pubic symphysis. The incision was then carried through to the underlying layer of fascia with the Bovie. The fascia was then nicked in the midline and the fascial incision was extended laterally. The superior aspect of the fascial incision was then grasped with the Kochers, tended up from the und erlying rectus muscle, dissected off bluntly with the Bovie. Attention was then turned to the inferior aspect of the fascial incision which, in a similar fashion was grasped with the Kochers, tented up and the underlying rectus muscle dissected off bluntly and wi th the Bovie. The rectus muscle was then in the midline. The peritoneum was then identifi ed, tented up and entered sharply with the Metzenbaum scissors. The incision was extended superiorly and inferiorly with excellent visualization of the bladder. The bladder blade was then inserted. T he omentum was noted to be attached to the lower portion of the peritoneum. This was moved to the si de to be dealt with later. The bladder flap was then created after tenting up the vesicouterine danielle toneum and entered sharply. The bladder blade was then reinserted. The uterus was then incised in a low-transverse fashion with the scalpel. The uterine incision was extended laterally. The membrane s were artificially ruptured. Clear fluid was noted. The infant's head was then delivered through t he incision and the remainder of the was delivered without difficulty. Delayed cord clamping x1 minute was performed. Cord was then clamped x2 and cut. Cord blood was obtained. The was handed off to awaiting nurse practitioner. Intact placenta with 3 vessel cord delivered wi thout difficulty. The uterus was then exteriorized and cleared of all clots and debris and wrapped i n a moist laparotomy sponge. The uterine incision was noted to be somewhat low as the internal os wa s clearly visualized in close proximity. The hysterotomy was then closed with a 0 Vicryl stitch in a running locked fashion. A second 0 Vicryl stitch was used to imbricate the uterine incision and hem ostasis was assured. Once the hysterotomy was closed, it did not appear that the hysterotomy was low ; however, as previously noted, the internal os was close proximity to the hysterotomy. Ovaries, [place] and tubes were unremarkable. The gutters were cleared of all clots and debris. The uterus was t hen returned to the patient's abdomen. The bladder blade was then reinserted and there was noted to be bleeding in the lower uterine segment. It was hard to differentiate between run down and bleeding on the peritoneal edge, so the uterus was then reexteriorized and we looked posteriorly and cleaned out the posterior cul-de-sac and replaced the uterus. No additional bleeding was noted. The hystero viji remained hemostatic. The bladder was noted to be remote form the hysterotomy site. The periton eum attachment to the omentum was carefully dissected off and was found to be hemostatic. The omentu m was then tucked up in the abdomen. Peritoneum was grasped with hemostats and reapproximated with 3 -0 Vicryl in a running fashion. The rectus muscle was reapproximated with 2-0 Vicryl in a running fa shion. The fascia was closed with 0 Vicryl in a running fashion. Toñito's tissue was noted to be ve ry stuck down so this was freed up with a Bovie. Toñito's tissue was then reapproximated with 2-0 Vi cryl in a running fashion. The subcuticular tissue was reapproximated with 3-0 Vicryl in a running f ashion. Sponge, lap and needle count were correct x2. The patient was transferred to the recovery r o in stable condition. /[id number]/MODL
[2019-01-12] MEDS ORDERED: IBUPROFEN 600 MG TAB PO SCH (09:30)
[2019-01-12] MEDS: SENNOSIDES/DOCUSATE SODIUM TAB PO SCH ×2 (10:01→21:54)
[2019-01-12] MEDS: IBUPROFEN 600 MG TAB PO SCH ×3 (10:02→21:54)
--- NOTE | 2019-01-12 10:14 | OBPP ---
Progress Note Assessment/Plan: Assessment / Plan:38 [id number] POD#1 s/p R-C/S (#3), doing well. Continue routine post op cares. Anemia - will start iron. Low urine output immediately post op - has resolved. Normal creatinine this morning. Voiding normal amounts spontaneously now. Encourage ambulation and support. María Bocanegra MD, FACOG 01/12/19 10:12 Subjective/ Course: 01/11/19 17:50 patient is dong well overall. surgery much rougher than the last one. pain is well controlled. decreased urine output since surgery <30 ml/hour. urine clear but very concentrated. fluid bolus given. will hold toradol until better urine output. will check creatineine now and in am. zofran helped nausea but still having some. will give phenergan in 1 L lr and run in 125/ hour. will slowly advance diet. stood at bedside. working on breast feeding. discussed plan with patient. 01/12/19 11:13 Pt doing well. Currently pumping. Was able to get some sleep. Has ambulated and voided without difficulty. Tolerating regular diet, no nausea today. Mod lochia. Objective: 01/12/19 06:20 01/12/19 06:20 Patient ABO/Rh A POSITIVE 01/11/19 04:50 Temp Pulse Resp BP Pulse Ox 36.8 C 78 16 100/47 L 93 01/12/19 09:15 01/12/19 09:15 01/12/19 09:15 01/12/19 09:15 01/12/19 09:15 Intake and Output 01/11/19 01/12/19 01/12/19 17:59 05:59 17:59 Intake Total 5250 2085 Output Total 1381 1405 125 Balance 3869 680 -125 Intake: Oral (ml) 1175 1375 IV Intake (ml) 1625 710 IV Infused (ml) 2450 Lr 1,000 ml @ 125 mls/hr 2000 IV CONT LENI Rx#: [id number] ceFAZolin 2 GM/DEXTROSE 450 100 ml @ 200 mls/hr IV ONCALL ONE Rx#:[id number] Output: Urine (ml) 231 1405 125 Catheter 231 1405 Toilet 125 Estimated Blood Loss (ml) 700 Emesis (ml) 450 Other: Output Comment Catheter after position change gen - pleasant, NAD CV - RRR chest - CTAB abd - soft, + BS, fundus firm at u-2 dressing - C/D/I ext - BLE trace edema, calves NT Uterine Position/Fundal Height: Umbilicus -2 Uterine Tone: Firm
[2019-01-12] MEDS: FERRO-SEQUELS 65 MG TAB.ER PO SCH ×2 (14:13→21:54)
--- NOTE | 2019-01-12 17:47 | POSTANESTH ---
Post Anesthetic Evaluation Cardiovascular Status: Normal, Stable, Similar to Pre-Op Cond Respiratory Status: Normal, Stable, Similar to Pre-op Cond. Level of Consciousness/Mental Status: Can Participate in Eval, Alert and Oriented Pain Control: Adequate, Prn Tx Ordered Nausea/Vomiting Control: Adequate, Prn Tx Ordered Complications Possibly Related to Anesthesia: None Noted Notes: Pt seen and examined. Back site c/d/i, no e/e/e. Able to ambulate. Denies CHAND , pruritis. Noted some significant discomfort with manipulation of the uterus, denies pain with incision. Some n/v. Pain controlled with NSAID's/APAP currently. Block resolved, no apparent adverse effects from the anesthesia.
[2019-01-13] MEDS: oxyCODONE IR 5 MG TAB PO PRN ×3 (00:41→10:28)
[2019-01-13] MEDS: ACETAMINOPHEN 325 MG TAB PO SCH ×2 (04:24→10:26)
[2019-01-13] MEDS: IBUPROFEN 600 MG TAB PO SCH ×2 (04:25→10:28)
[2019-01-13 08:58] VITALS: BP 111/67
--- NOTE | 2019-01-13 10:08 | OBPP ---
Progress Note Assessment/Plan: Assessment: 38 y/o POD #2 s/p Repeat LTCS ready to d/c home Plan: D/ c home today with Rx Ibuprofen, Tylenol, Oxycodone. support today and as an outpatient. Follow-up @ [facility] 2 and 6 weeks. 01/13/19 10:08 Subjective/ Course: 01/11/19 17:50 patient is dong well overall. surgery much rougher than the last one. pain is well controlled. decreased urine output since surgery <30 ml/hour. urine clear but very concentrated. fluid bolus given. will hold toradol until better urine output. will check creatineine now and in am. zofran helped nausea but still having some. will give phenergan in 1 L lr and run in 125/ hour. will slowly advance diet. stood at bedside. working on breast feeding. discussed plan with patient. 01/12/19 11:13 Pt doing well. Currently pumping. Was able to get some sleep. Has ambulated and voided without difficulty. Tolerating regular diet, no nausea today. Mod lochia. 01/13/19 10:03 Pt is doing well today. She feels ready to d/c home. She is having more pain after this c section and tried Oxycodone yesterday, which was helpful. Breast feeding has been challenging and her nipples are sore. She would like to try APNO cream as well. She is ambulating and voiding, having flatus and min lochia. No BM yet but she will start MiraLax etc. Objective: 01/12/19 06:20 01/12/19 06:20 Patient ABO/Rh A POSITIVE 01/11/19 04:50 Temp Pulse Resp BP Pulse Ox 36.9 C 71 16 111/67 95 01/13/19 08:00 01/13/19 08:00 01/13/19 08:00 01/13/19 08:00 01/13/19 08:00 Uterine Position/Fundal Height: Umbilicus -2 Uterine Tone: Firm Physical Exam - Physical Exam General Appearance: WD/WN, alert, no apparent distress Neck: non-tender, full range of motion, supple Respiratory: chest non-tender, lungs clear, normal breath sounds Cardiac/Chest: regular rate, rhythm Abdomen: normal bowel sounds, incision (c/d/i) Extremities: swelling (tr), Elayne's sign (neg)
--- NOTE | 2019-01-13 10:10 | OBGCSDC ---
General Delivery Information - General Info : 3 Para: 3 Abortions: 0 Type: Repeat L&D Analgesia/Anesthesia Type: IV Narcotics, Spinal Admission Date: 01/11/19 Labs: Patient ABO/Rh A POSITIVE 01/11/19 04:50 Hct 27.7 % (38.0-47.0) L 01/12/19 06:20 Temp Pulse Resp BP Pulse Ox 01/13/19 08:00 36.9 C 71 16 111/67 95 01/13/19 00:45 36.3 C 80 16 103/66 94 01/12/19 20:00 36.2 C 74 16 114/60 94 - Hospital Course : 01/11/19 17:50 patient is dong well overall. surgery much rougher than the last one. pain is well controlled. decreased urine output since surgery <30 ml/hour. urine clear but very concentrated. fluid bolus given. will hold toradol until better urine output. will check creatineine now and in am. zofran helped nausea but still having some. will give phenergan in 1 L lr and run in 125/ hour. will slowly advance diet. stood at bedside. working on breast feeding. discussed plan with patient. 01/12/19 11:13 Pt doing well. Currently pumping. Was able to get some sleep. Has ambulated and voided without difficulty. Tolerating regular diet, no nausea today. Mod lochia. 01/13/19 10:03 Pt is doing well today. She feels ready to d/c home. She is having more pain after this c section and tried Oxycodone yesterday, which was helpful. Breast feeding has been challenging and her nipples are sore. She would like to try APNO cream as well. She is ambulating and voiding, having flatus and min lochia. No BM yet but she will start MiraLax etc. - Delivery Providers Surgeon: Tana Gonzales [employer] Man: Imani Alexander Anesthesiologist: Chidi Garcia - Delivery Number of Prior Sections: 2 Indications for Current Section: Elective/Repeat Surgical Procedures: Scheduled, Low Transverse Intra-op Complications: None EBL: 700 [place] Data PAUL: 01/27/19 Gestational Age: 38 week(s) and 0 day(s) Strong Delivery Date: 01/11/19 Delivery Time: 08:18 Sex of : Male Weight (gm): 3295 g Score (1 Min): 8 Score (5 Min): 9 Discharge Information - Discharge Information Prescriptions: oxyCODONE IR [Oxycodone Ir (*)] 5 - 10 mg PO Q4HRS PRN #30 tab PRN Reason: Pain, Severe Able To Take Po Ibuprofen [Motrin (*)] 600 mg PO Q6H #30 tab Iron/Vit C/Docusate [Christ-Sequels 65 mg (*)] 1 each PO BID #60 tab.er Condition: Good Instruction/Follow Up: Two Weeks, Four Weeks, Six Weeks
[2019-01-13] MEDS: FERRO-SEQUELS 65 MG TAB.ER PO SCH (10:28)
[2019-01-13] MEDS: SENNOSIDES/DOCUSATE SODIUM TAB PO SCH (10:29)
== END 2019-01-13 13:25 | disposition home or self-care (01) | DRG 788 ==
LOC: FLD 05:12 → FOB 11:48
PROVIDERS: ADMIT Obstetrics & Gynecology; ATTEND Obstetrics & Gynecology
PROC: 0DNU0ZZ Release Omentum, Open Approach (ICD-10-PCS; principal; 2019-01-11)
PROC: 10D00Z1 Extraction of Products of Conception, Low, Open Approach (ICD-10-PCS; principal; 2019-01-11)
DX: O34.211 Maternal care for low transverse scar from previous cesarean delivery (principal); O99.03 Anemia complicating the puerperium; Z3A.37 37 weeks gestation of pregnancy; Z37.0 Single live birth
CPT/HCPCS: J0690; J1100; J1885; J1940; J2274; J2405; J2550; J2590; J3105

== ENCOUNTER → 2019-02-07 | Outpatient (CLI) | payer OTHER | LOC: FLACT 13:28 ==